=== PATIENT | male | born 1985 | race Two or more races ===

== ENCOUNTER 2017-12-15 21:17 | Emergency (ER) | payer OTHER ==
[2017-12-15 21:33] VITALS: BP 110/73; PULSE 100; RESP 18; TEMP 98.7; O2SAT 99
--- NOTE | 2017-12-15 21:49 | C.PDOC ---
History Of Present Illness 32 year old male presents to ED with complaints of nasal congestion, headache, sinus pressure, yellow mucus and cough with yellow sputum for 4 days. Patient has tried OTC medications without relief. Denies any chest pain, SOB, dizziness , ear pain. Time Seen by Provider: 12/15/17 21:37 Chief Complaint (Nursing): Cough, Cold, Congestion History Per: Patient History/Exam Limitations: no limitations Onset/Duration Of Symptoms: Days (4) Current Symptoms Are (Timing): Still Present Location Of Pain: Throat, Sinus/es, Headache Sick Contacts (Context): Family Member(s) Associated Symptoms: Cough, Sputum Past Medical History Reviewed: Historical Data, Nursing Documentation, Vital Signs Vital Signs: Last Vital Signs Temp 98.7 F 12/15/17 21:31 Pulse 100 H 12/15/17 21:31 Resp 18 12/15/17 21:31 BP 110/73 12/15/17 21:31 Pulse Ox 99 12/15/17 21:31 - Medical History PMH: No Chronic Diseases Surgical History: No Surg Hx Family History: States: Unknown Family Hx - Social History Hx Alcohol Use: No Hx Substance Use: No - Immunization History Hx Tetanus Toxoid Vaccination: No Hx Influenza Vaccination: No Hx Pneumococcal Vaccination: No Review Of Systems Constitutional: Negative for: Fever, Malaise Eyes: Negative for: Vision Change, Redness ENT: Positive for: Nose Congestion, Throat Pain. Negative for: Ear Pain Cardiovascular: Negative for: Palpitations Respiratory: Positive for: Cough, Sputum Gastrointestinal: Negative for: Vomiting, Abdominal Pain, Diarrhea Musculoskeletal: Negative for: Neck Pain, Back Pain Skin: Negative for: Rash Neurological: Positive for: Headache. Negative for: Dizziness Physical Exam - Physical Exam Appears: Well, Non-toxic, No Acute Distress Skin: Normal Color, Warm, Dry, No Diaphoretic, No Pale, No Rash Head: Atraumatic, Normacephalic Eye(s): bilateral: Normal Inspection, EOMI Ear(s): Bilateral: Normal (no erythema) Nose: Normal Oral Mucosa: Moist Throat: Normal, No Erythema, No Exudate, No Drooling, No Mass Neck: Normal ROM, Supple Lymphatic: Normal Exam, No Adenopathy Chest: Symmetrical Cardiovascular: Rhythm Regular, No Murmur Respiratory: Normal Breath Sounds, No Rhonchi, No Wheezing Extremity: Bilateral: Atraumatic, Normal ROM Neurological/Psych: Oriented x3, Normal Speech Gait: Steady ED Course And Treatment O2 Sat by Pulse Oximetry: 99 Medical Decision Making Medical Decision Making: Patient treated with Zithromax. Patient remained afebrile and in no distress. Rx given. Patient given follow up instructions. Disposition Counseled Patient/Family Regarding: Diagnosis, Need For Followup, Rx Given - Disposition Referrals: [facility] [Outside] Disposition: HOME/ ROUTINE Disposition Time: 21:49 Condition: STABLE Additional Instructions: Take Tylenol or Motrin alternating every 4-6 hours for Fever 100.4F or higher. Rest and drink plenty of fluids. May use cool mist humidifier or vaporizer in room. Follow up with your primary medical doctor or clinic in 2-5 days for further evaluation. Return to the emergency department at any time if symptoms persist or worsen. Prescriptions: Azithromycin [Zithromax] 250 mg PO DAILY #4 tab Instructions: Upper Respiratory Infection (ED) - POA Present On Arrival: None - Clinical Impression Clinical Impression: Upper respiratory infection
== END 2017-12-15 22:08 | disposition home or self-care (01) ==
LOC: C.ER 21:17
DX: J06.9 Acute upper respiratory infection, unspecified (principal); F17.210 Nicotine dependence, cigarettes, uncomplicated

== ENCOUNTER 2018-10-05 18:24 | Emergency (ER) | payer MEDICAID, OTHER ==
[2018-10-05 18:41] VITALS: BP 122/77; PULSE 78; TEMP 98; O2SAT 98
--- NOTE | 2018-10-05 19:05 | C.PDOC ---
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 Patient reports feeling pain inside of his nose. Denies fever, chills, and any other associated symptoms. NASAL, UPPER LIP LESION ONSET YEST. PS FEELS PAIN INSIDE NOSE, NOTICED LESIONS LAST NIGHT. HO COLD SORES. S/P RECENT FLU AND TETANUS SHOTS. NO FEVER, OTHE RASSOC SX EXAM NARD SKIN +HERPES SIMPLEX R OUTER NARE OPENING, L UPPER LIP. NO CELLULITIS Time Seen by Provider: 10/05/18 18:57 Chief Complaint (Nursing): Allergic Reaction History Per: Patient History/Exam Limitations: no limitations Onset/Duration Of Symptoms: Hrs Current Symptoms Are (Timing): Still Present Past Medical History Reviewed: Historical Data, Nursing Documentation, Vital Signs Vital Signs: Last Vital Signs Temp 98 F 10/05/18 18:38 Pulse 78 10/05/18 18:38 Resp 18 10/05/18 18:38 BP 122/77 10/05/18 18:38 Pulse Ox 98 10/05/18 18:38 - Medical History PMH: Denies: Chronic Kidney Disease Family History: States: Unknown Family Hx - Social History Hx Alcohol Use: No Hx Substance Use: No - Immunization History Hx Tetanus Toxoid Vaccination: Yes Hx Influenza Vaccination: Yes Hx Pneumococcal Vaccination: No Review Of Systems Constitutional: Negative for: Fever, Chills Skin: Positive for: Lesions (nasal upper lip.) Physical Exam - Physical Exam Appears: Well, Non-toxic, No Acute Distress Skin: Normal Color, Warm, Dry, Other ((+) herpes simplex right outer nare opening and left upper lip. (-) no cellulitis. ) Head: Atraumatic, Normacephalic Eye(s): bilateral: Normal Inspection Nose: Normal Oral Mucosa: Moist Throat: Normal, No Erythema, No Exudate Neck: Normal ROM, Supple Neurological/Psych: Oriented x3, Normal Speech ED Course And Treatment O2 Sat by Pulse Oximetry: 98 (RA) Pulse Ox Interpretation: Normal Medical Decision Making Medical Decision Making: Plan: -Decadron Motrin -Valtrex Progress/Updated: Patient stable for discharge home. Precribed Valtrex and Motrin. Advised to follow up with PMD within 1-2 days. Disposition Counseled Patient/Family Regarding: Diagnosis, Need For Followup, Rx Given - Disposition Referrals: YOUR,PMD [Other] Disposition: HOME/ ROUTINE Disposition Time: 19:04 Condition: IMPROVED Prescriptions: Ibuprofen [Motrin] 600 mg PO Q6 #30 tab Valacyclovir HCl [Valtrex] 2,000 mg PO ONCE #2 tablet Instructions: Cold Sores (Oral Herpes) (DC) Forms: [employer] (Macedonian) - Clinical Impression Clinical Impression: Herpes simplex labialis - Scribe Statement The provider has reviewed the documentation as recorded by the Scribe (Debra Fang) Provider Attestation: All medical record entries made by the Scribe were at my direction and personally dictated by me. I have reviewed the chart and agree that the record accurately reflects my personal performance of the history, physical exam, medical decision making, and the department course for this patient. I have also personally directed, reviewed, and agree with the discharge instructions and disposition.
[2018-10-05 19:31] VITALS: RESP 16
== END 2018-10-05 19:29 | disposition home or self-care (01) ==
LOC: C.ER 18:24
DX: B00.1 Herpesviral vesicular dermatitis (principal)
CPT/HCPCS: 99283; J8540

== ENCOUNTER 2018-12-10 10:06 | Emergency (ER) | payer MEDICAID ==
[2018-12-10 10:18] VITALS: RESP 16; TEMP 98
[2018-12-10] MEDS ORDERED: Naproxen 550 mg Tab PO STA (10:45)
[2018-12-10] MEDS ORDERED: Lidocaine 5% Patch TD STA (10:45)
[2018-12-10] MEDS ORDERED: Naproxen 550 mg Tab PO ONE (10:58)
[2018-12-10] MEDS ORDERED: Lidocaine 5% Patch TD ONE (10:58)
--- NOTE | 2018-12-10 11:02 | C.PDOC ---
History Of Present Illness 33 year old male presents to the ED for evaluation of upper back pain which began yesterday. Patient describes his pain as sharp, and worse with movement and bending forward. 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 He denies fall, chest pain, shortness of breath, hemoptysis, extremity numbness/weakness. Time Seen by Provider: 12/10/18 10:37 Chief Complaint (Nursing): Back Pain History Per: Patient History/Exam Limitations: no limitations Onset/Duration Of Symptoms: Hrs Current Symptoms Are (Timing): Still Present Quality Of Discomfort: Sharp, "Pain" Previous Symptoms: Back Pain Associated Symptoms: denies: Incontinence, New Weakness, New Numbness Exacerbating Factor(s): Movement, Other (bending forward ) Additional History Per: Patient Past Medical History Reviewed: Historical Data, Nursing Documentation, Vital Signs Vital Signs: Last Vital Signs Temp 98 F 12/10/18 10:15 Pulse 90 12/10/18 10:15 Resp 16 12/10/18 10:15 BP 131/80 12/10/18 10:15 Pulse Ox 100 12/10/18 10:15 - Medical History PMH: No Chronic Diseases Denies: Chronic Kidney Disease Surgical History: No Surg Hx Family History: States: Unknown Family Hx - Social History Hx Alcohol Use: No Hx Substance Use: No - Immunization History Hx Tetanus Toxoid Vaccination: Yes Hx Influenza Vaccination: Yes Hx Pneumococcal Vaccination: No Review Of Systems Cardiovascular: Negative for: Chest Pain Respiratory: Negative for: Shortness of Breath Musculoskeletal: Positive for: Back Pain (upper ) Neurological: Negative for: Weakness, Numbness Physical Exam - Physical Exam Appears: Non-toxic, No Acute Distress Skin: Normal Color, Warm, Dry Head: Atraumatic, Normacephalic Eye(s): bilateral: Normal Inspection Oral Mucosa: Moist Neck: Supple Chest: Symmetrical, No Deformity, No Tenderness Cardiovascular: Rhythm Regular, No Murmur Respiratory: Normal Breath Sounds, No Rales, No Rhonchi, No Wheezing Gastrointestinal/Abdominal: Soft, No Tenderness, No Guarding, No Rebound Back: No Vertebral Tenderness, Paraspinal Tenderness (right-sided, parathoracic ) Extremity: Normal ROM, Capillary Refill (less than 2 seconds ) Neurological/Psych: Oriented x3, Normal Speech, Normal Cognition Gait: Steady ED Course And Treatment O2 Sat by Pulse Oximetry: 100 (on RA) Pulse Ox Interpretation: Normal Medical Decision Making Medical Decision Making: Progress: Patient refuses scans at this time. Naproxen PO and Lidoderm TD given. Disposition - Disposition Referrals: Lawson Foster MD [Non-Staff] - Disposition: HOME/ ROUTINE Disposition Time: 10:59 Condition: STABLE Additional Instructions: Follow up with the medical doctor within 1-2 days. Return if worsened. Prescriptions: Diazepam [Valium] 2 mg PO TID #21 tab Methyl Salicylate/Menthol [Sm Muscle Rub Cream] 85 gm TP DAILY #1 cream..g. Naproxen [Naprosyn] 500 mg PO BID #20 tab Instructions: Muscle Spasms (DC) Forms: [employer] (Vietnamese), Work Excuse - Clinical Impression Clinical Impression: Muscle spasm - PA / MEDICAL PATHOLOGY TEACHER / Resident Statement MD/DO has reviewed & agrees with the documentation as recorded. - Scribe Statement The provider has reviewed the documentation as recorded by the Scribe (Courtney Killian) All medical record entries made by the Scribe were at my direction and personally dictated by me. I have reviewed the chart and agree that the record accurately reflects my personal performance of the history, physical exam, medical decision making, and the department course for this patient. I have also personally directed, reviewed, and agree with the discharge instructions and disposition.
[2018-12-10 11:07] VITALS: BP 124/85; PULSE 74
[2018-12-10 18:50] VITALS: O2SAT 100
== END 2018-12-10 11:06 | disposition home or self-care (01) ==
LOC: C.ER 10:06
DX: M62.838 Other muscle spasm (principal)